=== PATIENT | male | born 1940 | race Caucasian/White ===

== ENCOUNTER 2016-11-10 14:15 | Inpatient (IN) | payer BC ==
[~2016-11-10] VITALS: Ht 172.7 cm; Wt 110.2 kg
[~2016-11-10 14:15] MED LIST: Acetaminophen PO; LISI-603 PO; METF500T4 PO; SIMV20TA6 PO
[2016-11-10] MEDS ORDERED: METF500T4 PO (14:38)
[2016-11-10] MEDS ORDERED: LISI-603 PO (14:38)
[2016-11-10 14:56] LABS: BASOPHILS % (AUTO) 0.4 % (0.0-2.0); EOSINOPHILS # (AUTO) 0.2 K/uL (0.0-0.7); EOSINOPHILS % (AUTO) 3.5 % (0.0-7.0); HEMATOCRIT 38.4 % (40-50); HEMOGLOBIN 12.7 G/DL (14.0-18.0); LYMPHOCYTES # (AUTO) 1.9 K/UL (0.8-4.8); LYMPHOCYTES % (AUTO) 26.7 % (20.5-51.5); MEAN CORPUSCULAR HEMOGLOBIN 29.7 UUG (27.0-31.0); MEAN CORPUSCULAR HGB CONC 33 g/dL (32.0-37.0); MEAN CORPUSCULAR VOLUME 90.1 FL (82.0-92.0); MONOCYTES % (AUTO) 14.4 % (0.0-11.0); PLATELET COUNT (AUTO) 235 K/UL (150-450); RED BLOOD CELL COUNT(AUTO) 4.26 MIL/UL (4.7-6.1); WHITE BLOOD COUNT (AUTO) 7.1 K/UL (4.0-11.2)
[2016-11-10 15:00] LABS: CARBON DIOXIDE 31 mmol/L (21-32); CHLORIDE 105 mmol/L (98-107); GLUCOSE 130 mg/dL (74-106); UREA NITROGEN, BLOOD 18 mg/dL (7-18)
[2016-11-10] MEDS ORDERED: ASPIRIN 325 MG TABLET PO ONE (15:45)
[2016-11-10] MEDS ORDERED: ASPIRIN 325 MG TABLET ONE (16:13)
[2016-11-10 17:30] VITALS: BP 128/66
--- NOTE | 2016-11-10 17:40 | NUR ---
RECEIVED FOR ADMISSION 76 YEARS OLD MALE FROM ED BY [facility] WITH DX OF ACUTE CORONARY SYNDROME PLACED INTO BED FIXED AND MADE COMFORTABLE PATIENT IS ALERT AND ORIENTED HIS RIGHT ARM IS WITH TRACE EDEMA AND PATIENT STATED THAT THE SWELLING HAS GONE DOWN SIGNIFICANTLY.ASSISTED WITH THE ADMISSION PROCESS DENIES PAIN OR DISCOMFORTS AT THIS TIME.PATIENT ORIENTED TO ROOM AND HOSPITAL PROTOCOL NOT IN DISTRESS AT THIS TIME CALLED DR TENORIO AND LEFT MESSAGE FOR ADMITTING ORDERS.
[2016-11-10] MEDS ORDERED: Medication Not On Formulary EA ([Acetaminophen] (Tylenol) 650 MG) PO PRN (18:00)
[2016-11-10] MEDS ORDERED: ZOLPIDEM 5 MG TABLET PO PRN (18:15)
[2016-11-10] MEDS ORDERED: HYDROCODONE/APAP 5-325MG TABLET PO PRN (18:15)
[2016-11-10] MEDS ORDERED: MAGNESIUM HYDROXIDE 30 ML LIQUID UDC PO PRN (18:15)
[2016-11-10] MEDS ORDERED: ACETAMINOPHEN 325 MG TABLET PO PRN ×2 (18:15)
[2016-11-10] MEDS ORDERED: ONDANSETRON 4 MG/2 ML VIAL IV PRN (18:15)
[2016-11-10] MEDS ORDERED: MORPHINE SULFATE 2 MG/1 ML DISP.SYRIN IV PRN (18:15)
[2016-11-10 18:36] LABS: ALANINE AMINOTRANSFERASE 40 U/L (16-63); ALKALINE PHOSPHATASE 44 U/L (50-136); ASPARTATE AMINOTRANSFERASE 27 U/L (15-37); BILIRUBIN,DIRECT < 0.1 mg/dL (0.0-0.2); BILIRUBIN,TOTAL 0.2 mg/dL (0.2-1.0); TOTAL PROTEIN, SERUM 7.1 g/dL (6.4-8.2)
[2016-11-10 20:20] VITALS: BP 139/82
[2016-11-10] MEDS ORDERED: LISINOPRIL 20 MG TABLET PO SCH (21:00)
[2016-11-10] MEDS ORDERED: DOCUSATE SODIUM 100 MG CAPSULE PO SCH (21:00)
[2016-11-10] MEDS ORDERED: SIMVASTATIN 20 MG TABLET PO SCH (21:00)
[2016-11-10] MEDS: ENOXAPARIN SODIUM 60 MG/0.6 ML DISP.SYRIN SQ SCH (22:26)
--- NOTE | 2016-11-10 23:52 | NUR ---
AWAKE,ALERT IN NO ACUTE DISTRESS. NO COMPLAINTS MADE,TELEMETRY SINUS RHYTHM WITH 1ST DEGREE AV BLOCK. SLEPT AT LONG INTERVALS.
[2016-11-11 00:16] VITALS: BP 126/71
[2016-11-11 05:03] VITALS: BP 136/71
--- NOTE | 2016-11-11 05:29 | NUR ---
SLEPT AT LONG INTERVALS,NO COMPLAINTS MADE.TELEMETRY SINUS RHYTHM WITH 1ST DEGREE AV BLOCK.
[2016-11-11] MEDS ORDERED: PANTOPRAZOLE SODIUM 40 MG TABLET.DR PO SCH (07:00)
[2016-11-11 07:01] LABS: BASOPHILS % (AUTO) 0.4 % (0.0-2.0); EOSINOPHILS # (AUTO) 0.2 K/uL (0.0-0.7); EOSINOPHILS % (AUTO) 3.5 % (0.0-7.0); HEMATOCRIT 37.1 % (40-50); HEMOGLOBIN 12.6 G/DL (14.0-18.0); LYMPHOCYTES # (AUTO) 1.8 K/UL (0.8-4.8); LYMPHOCYTES % (AUTO) 29.3 % (20.5-51.5); MEAN CORPUSCULAR HEMOGLOBIN 30.6 UUG (27.0-31.0); MEAN CORPUSCULAR HGB CONC 34 g/dL (32.0-37.0); MEAN CORPUSCULAR VOLUME 90.2 FL (82.0-92.0); MONOCYTES # (AUTO) 0.6 K/UL (0.1-1.30); MONOCYTES % (AUTO) 10.6 % (0.0-11.0); NEUTROPHILS # (AUTO) 3.5 K/UL (1.8-8.9); NEUTROPHILS % (AUTO) 56.2 % (38.5-71.5); PLATELET COUNT (AUTO) 218 K/UL (150-450); RED BLOOD CELL COUNT(AUTO) 4.11 MIL/UL (4.7-6.1); WHITE BLOOD COUNT (AUTO) 6.1 K/UL (4.0-11.2)
[2016-11-11 07:12] LABS: IRON, SERUM 93 ug/dL (50-175)
[2016-11-11 07:13] LABS: ALANINE AMINOTRANSFERASE 36 U/L (16-63); ALKALINE PHOSPHATASE 40 U/L (50-136); ASPARTATE AMINOTRANSFERASE 23 U/L (15-37); BILIRUBIN,TOTAL 0.4 mg/dL (0.2-1.0); CARBON DIOXIDE 32 mmol/L (21-32); CHLORIDE 104 mmol/L (98-107); CHOLESTEROL 147 mg/dL (<200); CREATININE 1.1 mg/dL (0.6-1.3); GLUCOSE 115 mg/dL (74-106); HDL CHOLESTEROL 36 mg/dL (40-60); MAGNESIUM 2.1 mg/dL (1.8-2.4); PHOSPHOROUS 3.3 mg/dL (2.5-4.9); POTASSIUM 4.3 mmol/L (3.5-5.1); TOTAL PROTEIN, SERUM 6.6 g/dL (6.4-8.2); TRIGLYCERIDES 206 MG/DL (30-150); UREA NITROGEN, BLOOD 20 mg/dL (7-18)
[2016-11-11 08:38] LABS: THYROID STIMULATING HORMONE 2.603 mIU/mL (0.358-3.740)
[2016-11-11] MEDS: ENOXAPARIN SODIUM 60 MG/0.6 ML DISP.SYRIN SQ SCH (08:59)
[2016-11-11] MEDS ORDERED: ASPIRIN EC 81 MG TABLET.DR PO SCH (09:00)
--- NOTE | 2016-11-11 10:15 | NUR ---
PATIENT SEEN BY DR STARK WITH ORDER TO DISCHARGE PATIENT HOME TODAY IF CLEARED BY THE PONY RIDE OPERATOR PATIENT AWARE.
[2016-11-11 11:58] VITALS: BP 138/71
--- NOTE | 2016-11-11 18:00 | NUR ---
PATIENT SEEN BY DR LEWIS AND STATED THAT PATIENT COULD BE DISCHARGED HOME TODAY AND FOR HIM TO FOLLOW UP WITH HIS TAILER IN.
--- NOTE | 2016-11-11 18:25 | NUR ---
PATIENT DISCHARGED STATED THAT HE HAS HIS OWN CAR IN THE PARKING LOT TMS GIVEN TO HIM AND INSTRUCTED HIM TO CALL FOR A FOLLOW UP APPOINTMENT WITH HIS PRIMARY DOCTOR AND HIS HAND OUTSIDE CUTTER AND HE EXPRESSED UNDERSTANDING.
== END 2016-11-11 18:25 | disposition home or self-care (01) | DRG 280 ==
LOC: ER 14:18 → TELE 17:19
PROVIDERS: ADMIT Internal Medicine; ATTEND Internal Medicine
DX: I21.4 Non-ST elevation (NSTEMI) myocardial infarction (principal); N17.0 Acute kidney failure with tubular necrosis; R60.0 Localized edema; I89.0 Lymphedema, not elsewhere classified; I11.9 Hypertensive heart disease without heart failure; E78.5 Hyperlipidemia, unspecified; Z87.898 Personal history of other specified conditions; E11.9 Type 2 diabetes mellitus without complications; D50.9 Iron deficiency anemia, unspecified; N40.0 Benign prostatic hyperplasia without lower urinary tract symptoms; Z79.899 Other long term (current) drug therapy; Z86.19 Personal history of other infectious and parasitic diseases; E66.9 Obesity, unspecified; Z68.36 Body mass index [BMI] 36.0-36.9, adult; Z79.84 Long term (current) use of oral hypoglycemic drugs
CPT/HCPCS: 36415; 70030-TC; 71010; 83550; 83735; 84100; 84443; 85025; 85730; 93005; 93307; A4663; J1650

== ENCOUNTER 2020-05-12 09:15 | Emergency (ER) | payer BC, OTHER ==
[~2020-05-12] VITALS: Ht 170.2 cm; Wt 104.3 kg
[~2020-05-12 09:15] MED LIST changes: +METF-440 PO; -METF500T4 PO; +SIMV-46 PO; -SIMV20TA6 PO
[2020-05-12] MEDS ORDERED: SULFAMETH/TRIMETH 800/160 MG TABLET PO ONE (11:15)
[2020-05-12 11:16] VITALS: BP 131/78
--- NOTE | 2020-05-12 11:16 | NUR ---
Patient discharged to home in stable condition. Written and verbal after care instructions given. Patient verbalizes understanding of instructions. Stressed follow up or return to ER for worsening s/s.
[2020-05-12] MEDS ORDERED: SULFAMETH/TRIMETH 800/160 MG TABLET ONE (11:22)
== END 2020-05-12 11:33 | disposition home or self-care (01) ==
LOC: ER 09:15
DX: L03.115 Cellulitis of right lower limb (principal); E11.9 Type 2 diabetes mellitus without complications; I10 Essential (primary) hypertension; E78.5 Hyperlipidemia, unspecified; Z79.84 Long term (current) use of oral hypoglycemic drugs; Z79.899 Other long term (current) drug therapy
CPT/HCPCS: A4663

== ENCOUNTER 2020-05-17 11:20 | Emergency (ER) | payer OTHER ==
[~2020-05-17] VITALS: Ht 170.2 cm; Wt 106.6 kg
--- NOTE | 2020-05-17 11:56 | NUR ---
[email or web address], medical screening exam in progress, pending MD orders
[2020-05-17] MEDS ORDERED: CLINDAMYCIN HCL 300 MG CAPSULE ONE (12:07)
[2020-05-17] MEDS ORDERED: CLINDAMYCIN HCL 150 MG CAPSULE PO ONE (12:15)
== END 2020-05-17 12:12 | disposition home or self-care (01) ==
LOC: ER 11:20
DX: L03.115 Cellulitis of right lower limb (principal); I10 Essential (primary) hypertension; E11.9 Type 2 diabetes mellitus without complications; Z79.899 Other long term (current) drug therapy; Z79.84 Long term (current) use of oral hypoglycemic drugs; E78.00 Pure hypercholesterolemia, unspecified
CPT/HCPCS: A4663